=== PATIENT | male | born 1935 | race Caucasian/White ===

== ENCOUNTER 2016-07-18 15:00 | Observation (INO) | payer MEDICARE ==
[~2016-07-18] VITALS: Ht 170.2 cm; Wt 175.0 kg
[2016-07-18 15:15] VITALS: BP 105/60; PULSE 59; RESP 16; TEMP 97.5; O2SAT 97
[2016-07-18] MEDS ORDERED: ATOR20TA15 PO (15:25)
[2016-07-18] MEDS ORDERED: TAMS5CAP PO (15:25)
[2016-07-18] MEDS ORDERED: PLAV75TA29 PO (15:25)
[2016-07-18] MEDS ORDERED: ASPI81CH CHEW (15:25)
[2016-07-18] MEDS ORDERED: GLIP5TAB8 PO (15:26)
[2016-07-18] MEDS ORDERED: LISI-519 PO (15:26)
[2016-07-18] MEDS ORDERED: METF500T PO (15:26)
[2016-07-18 15:28] VITALS: O2SAT 98
--- NOTE | 2016-07-18 15:42 | PD ---
HPI Chief Complaint: Syncope/Near-Syncope Time Seen by Provider: 15:39 Travel History International Travel<30 days: No Contact w/Intl Traveler<30days: No Traveled to known affect area: No History of Present Illness HPI 80-year-old male that presents to the ED for evaluation of syncopal episode. Patient apparently was sitting watching TV when she felt that he had to go to the bathroom to have a bowel movement. Per patient he got up and he felt somewhat lightheaded but he continued to walk and then he had a syncopal episode. He does not remember if he lost consciousness but does tell me that he did not hit his head. He denies any chest pain or symptoms other than sensation of lightheadedness before he passed out. He denies any pain of any kind at this time. He does have a history of coronary disease with having 2 stents 2 years ago as well as history of diabetes and high blood pressure and high cholesterol. He does take Plavix. At this time he denies any symptoms other than slight weakness but for the most part he feels well. He denies any chest pain or shortness of breath. No abdominal discomfort. No bowel movement or urinary issues. Allergies to penicillin. He does tell me that he did drink a beer before this happened. This is his normal routine. He has never had anything like this before. PFSH Past Medical History Cardiovascular Problems: Yes (cad) Coronary Artery Disease: Yes Diabetes: Yes Patient Takes Glucophage: No Genitourinary: Yes (pROSTITIS) Triglycerides - High: Yes Past Surgical History Abdominal Surgery: Yes (CHOLY) Social History Alcohol Use: No Tobacco Use: Yes Substance Use: No Allergies-Medications (Allergen,Severity, Reaction): Coded Allergies: Penicillin (Verified Allergy, Intermediate, Swelling, 07/18/16) Reported Meds & Prescriptions Reported Meds & Active Scripts Active Reported Metformin (Metformin HCl) 500 Mg Tab 500 Mg PO BIDPC With meals Lisinopril 5 Mg Tab 5 Mg PO DAILY Glipizide 5 Mg Tab 5 Mg PO DAILY Take 30 minutes before a meal Flomax (Tamsulosin HCl) 0.4 Mg Cap 0.4 Mg PO HS Aspirin 81 Mg Chew 81 Mg CHEW DAILY Plavix (Clopidogrel Bisulfate) 75 Mg Tab 75 Mg PO DAILY Atorvastatin (Atorvastatin Calcium) 20 Mg Tab 20 Mg PO HS Review of Systems Except as stated in HPI: all other systems reviewed are Neg Physical Exam Narrative GENERAL: SKIN: Warm and dry. HEAD: Atraumatic. Normocephalic. EYES: Pupils equal and round 4 mm reactive to light and accommodation. No scleral icterus. No injection or drainage. ENT: No nasal bleeding or discharge. Mucous membranes pink and moist. Tongue is midline. No uvula deviation. NECK: Trachea midline. No JVD. CARDIOVASCULAR: Regular rate and rhythm. No murmurs, S3, S4. RESPIRATORY: No accessory muscle use. Clear to auscultation. Breath sounds equal bilaterally. GASTROINTESTINAL: Abdomen soft, non-tender, nondistended. Hepatic and splenic margins not palpable. MUSCULOSKELETAL: Extremities without clubbing, cyanosis, or edema. No obvious deformities. Full range of motion of the upper and lower extremities bilaterally. 2+ pulses bilaterally. NEUROLOGICAL: Awake and alert. No obvious cranial nerve deficits. Motor grossly within normal limits. Five out of 5 muscle strength in the arms and legs. Normal speech. PSYCHIATRIC: Appropriate mood and affect; insight and judgment normal. Data Data Last Documented VS Vital Signs Date Time Temp Pulse Resp B/P Pulse Ox O2 Delivery O2 Flow Rate FiO2 07/18/16 16:30 60 97/51 61 98/57 73 93/54 07/18/16 16:15 Room Air 07/18/16 15:28 98 07/18/16 15:15 97.5 16 Orders Electrocardiogram (07/18/16 15:24) Complete Blood Count With Diff (07/18/16 15:24) Comprehensive Metabolic Panel (07/18/16 15:24) Ckmb (Isoenzyme) Profile (07/18/16 15:24) Troponin I (07/18/16 15:24) Prothrombin Time / Inr (Pt) (07/18/16 15:24) Act Partial Throm Time (Ptt) (07/18/16 15:24) Urinalysis - C+S If Indicated (07/18/16 15:24) Magnesium (Mg) (07/18/16 15:24) Thyroid Stimulating Hormone (07/18/16 15:24) Chest, Single Ap (07/18/16 15:24) Ct Brain W/O Iv Contrast(Rout) (07/18/16 15:24) Iv Access Insert/Monitor (07/18/16 15:24) Ecg Monitoring (07/18/16 15:24) Oximetry (07/18/16 15:24) Orthostatic Vital Signs (07/18/16 15:24) Alcohol (Ethanol) (07/18/16 15:24) Sodium Chlor 0.9% 1000 Ml Inj (Ns 1000 M (07/18/16 16:57) Labs Laboratory Tests Test 07/18/16 16:00 White Blood Count 10.0 TH/MM3 Red Blood Count 4.24 MIL/MM3 Hemoglobin 13.5 GM/DL Hematocrit 39.7 % Mean Corpuscular Volume 93.7 FL Mean Corpuscular Hemoglobin 31.9 PG Mean Corpuscular Hemoglobin 34.0 % Concent Red Cell Distribution Width 13.2 % Platelet Count 279 TH/MM3 Mean Platelet Volume 6.4 FL Neutrophils (%) (Auto) 86.9 % Lymphocytes (%) (Auto) 6.9 % Monocytes (%) (Auto) 5.2 % Eosinophils (%) (Auto) 0.7 % Basophils (%) (Auto) 0.3 % Neutrophils # (Auto) 8.7 TH/MM3 Lymphocytes # (Auto) 0.7 TH/MM3 Monocytes # (Auto) 0.5 TH/MM3 Eosinophils # (Auto) 0.1 TH/MM3 Basophils # (Auto) 0.0 TH/MM3 CBC Comment DIFF FINAL Differential Comment Prothrombin Time 11.4 SEC Prothromb Time International 1.0 RATIO Ratio Activated Partial 24.0 SEC Thromboplast Time Sodium Level 139 MEQ/L Potassium Level 5.3 MEQ/L Chloride Level 106 MEQ/L Carbon Dioxide Level 26.6 MEQ/L Anion Gap 6 MEQ/L Blood Urea Nitrogen 17 MG/DL Creatinine 1.20 MG/DL Estimat Glomerular Filtration 58 ML/MIN Rate Random Glucose 246 MG/DL Calcium Level 8.8 MG/DL Magnesium Level 2.1 MG/DL Total Bilirubin 1.1 MG/DL Aspartate Amino Transf 15 U/L (AST/SGOT) Alanine Aminotransferase 22 U/L (ALT/SGPT) Alkaline Phosphatase 96 U/L Total Creatine Kinase 42 U/L Troponin I LESS THAN 0.02 NG/ML Total Protein 6.8 GM/DL Albumin 3.9 GM/DL Thyroid Stimulating Hormone 0.926 uIU/ML 3rd Gen Ethyl Alcohol Level 6 MG/DL [facility] Medical Decision Making Medical Screen Exam Complete: Yes Emergency Medical Condition: Yes Medical Record Reviewed: Yes Interpretation(s) EKG shows sinus bradycardia but no sign of acute ischemia or arrhythmia. Read by me and attending. CBC & BMP Diagram 07/18/16 16:00 LFTS WNL troponin and CKMB negative Last Impressions Head CT 07/18/16 1524 Signed Impressions: Service Date/Time: Monday, July 18, 2016 15:44 - CONCLUSION: Negative for acute process.. Mor Troy MD FACR Chest X-Ray 07/18/16 1524 Signed Impressions: Service Date/Time: Monday, July 18, 2016 15:41 - CONCLUSION: No acute cardiopulmonary disease. Julien Arizmendi MD TSH within normal limits. Coags within normal limits Differential Diagnosis Syncope versus presyncope versus electrolyte abnormality versus arrhythmia versus CVA versus ACS Narrative Course 80-year-old male that presents to the ED for evaluation of syncope. Patient was properly examined and was found to have signs and symptoms consistent appears to be syncopal episode. I recommend labs and imaging. Labs and imaging ordered. Labs and imaging were essentially unremarkable this time. Because of patient's age and history of syncope I do recommend workup for syncopal episode. Labs and imaging show no sign of acute disease. Patient does have risk factors secondary to a patient his history of hypertension diabetes and high cholesterol. I do recommend further workup for syncopal episode. This was discussed with the family and patient were in agreement with this plan. Case was discussed with Dr. Carroll who agrees to admission. Procedures EKG Prior to Arrival: No Diagnosis Primary Impression: Syncope Qualified Code: R55 - Syncope, unspecified syncope type Admitting Information Admitting Physician Requests: Observation Jeremy Okeefe Jul 18, 2016 15:42
--- NOTE | 2016-07-18 15:50 | RADRPT ---
EXAM DATE/TIME: 07/18/2016 15:44 [facility] COMPARISON: No previous studies available for comparison. INDICATIONS : Syncope. RADIATION DOSE: 39.37 CTDIvol (mGy) MEDICAL HISTORY : Cardiovascular disease. Diabetes mellitus type 2. SURGICAL HISTORY : None. ENCOUNTER: Initial ACUITY: 1 day PAIN SCALE: 3/10 LOCATION: cranial TECHNIQUE: Multiple contiguous axial images were obtained of the head. Using automated exposure control and adj ustment of the mA and/or kV according to patient size, radiation dose was kept as low as reasonably a chievable to obtain optimal diagnostic quality images. FINDINGS: CEREBRUM: The ventricles are normal for age. No evidence of midline shift, mass lesion, hemorrhage or acute in farction. No extra-axial fluid collections are seen. POSTERIOR FOSSA: The cerebellum and brainstem are intact. The 4th ventricle is midline. The cerebellopontine angle i s unremarkable. EXTRACRANIAL: The visualized portion of the orbits is intact. SKULL: The calvaria is intact. No evidence of skull fracture. CONCLUSION: Negative for acute process.. Mor Troy MD FACR on July 18, 2016 at 15:48 Board Certified Radiologist. This report was verified electronically.
[2016-07-18 16:29] LABS: AUTOMATED NEUTROPHIL # 8.7 TH/MM3 (1.8-7.7); BASOPHIL % 0.3 % (0.0-2.0); EOSINOPHIL # 0.1 TH/MM3 (0-0.4); EOSINOPHIL % 0.7 % (0.0-4.0); HEMATOCRIT 39.7 % (39.0-51.0); HEMO FLAGS DIFF FINAL; LYMPH % 6.9 % (9.0-44.0); LYMPHOCYTE # 0.7 TH/MM3 (1.0-4.8); MEAN CELL VOLUME 93.7 FL (80.0-100.0); MEAN CORPUSCULAR HEMOGLOBIN 31.9 PG (27.0-34.0); MONO % 5.2 % (0.0-8.0); NEUT % 86.9 % (16.0-70.0); PLATELET COUNT 279 TH/MM3 (150-450); RED BLOOD COUNT 4.24 MIL/MM3 (4.50-5.90); RED CELL DISTRIBUTION WIDTH 13.2 % (11.6-17.2)
[2016-07-18 16:30] VITALS: BP_SYST 93; BP_SYST 97; BP_SYST 98; BP_DIAS 51; BP_DIAS 54; BP_DIAS 57
[2016-07-18 16:39] LABS: PROTHROMBIN TIME - PATIENT 11.4 SEC (9.8-11.6)
--- NOTE | 2016-07-18 16:40 | RADRPT ---
EXAM DATE/TIME: 07/18/2016 15:41 [facility] COMPARISON: No previous studies available for comparison. INDICATIONS : Syncope MEDICAL HISTORY : Cardiovascular disease. Diabetes mellitus type II. SURGICAL HISTORY : None. ENCOUNTER: Initial ACUITY: 1 day PAIN SCORE: 0/10 LOCATION: chest FINDINGS: The lungs are clear without infiltrate, nodule, or mass. There is no appreciable pleural effusion fo r technique. Heart and mediastinum are unremarkable. CONCLUSION: No acute cardiopulmonary disease. Julien Arizmendi MD on July 18, 2016 at 16:37 Board Certified Radiologist. This report was verified electronically.
[2016-07-18 16:44] LABS: ALT (GPT) 22 U/L (12-78); ANION GAP 6 MEQ/L (5-15); AST (GOT) 15 U/L (15-37); BICARBONATE 26.6 MEQ/L (21.0-32.0); BLOOD UREA NITROGEN 17 MG/DL (7-18); CHLORIDE 106 MEQ/L (98-107); GLOMERULAR FILTRATION RATE 58 ML/MIN (>89); MAGNESIUM 2.1 MG/DL (1.5-2.5); POTASSIUM 5.3 MEQ/L (3.5-5.1); SODIUM (NA) 139 MEQ/L (136-145)
[2016-07-18 16:54] LABS: ALKALINE PHOSPHATASE 96 U/L (45-117); TOTAL BILIRUBIN ADULT 1.1 MG/DL (0.2-1.0)
[2016-07-18 16:55] LABS: CREATINE KINASE 42 U/L (39-308)
[2016-07-18] MEDS ORDERED: SODIUM CHLOR 0.9% 1000 ML INJ 1,000 ML IV SCH (16:57)
[2016-07-18] MEDS ORDERED: SODIUM CHLORIDE 0.9% FLUSH 10 ML FLUSH IV FLUSH PRN (17:45)
[2016-07-18] MEDS ORDERED: GLUCAGON 1 MG/ML VIAL OTHER PRN (17:45)
[2016-07-18] MEDS ORDERED: DEXTROSE 50% IN WATER 50 ML VIAL(D50) IV PUSH PRN (17:45)
[2016-07-18] MEDS: SODIUM CHLOR 0.9% 1000 ML INJ 1,000 ML IV SCH (18:29)
--- NOTE | 2016-07-18 18:45 | HHI.HP ---
HPI Service [facility] Primary Care Physician Non-Staff Admission Diagnosis Syncope Diagnoses: Chief Complaint: pass out, lighthadedness Travel History International Travel<30 Days: No Contact w/Intl Traveler <30 Da: No Traveled to Known Affected Are: No History of Present Illness 80-year-old male with PMH of DM2, HTN, CAD with 3 stents, BPH that presents to the ED for evaluation of syncopal episode. Patient apparently was sitting watching TV when she felt that he had to go to the bathroom to have a bowel movement. Per patient he got up and he felt somewhat lightheaded but he continued to walk and then he had a syncopal episode. He does not remember if he lost consciousness but does tell me that he did not hit his head. He denies any chest pain or symptoms other than sensation of lightheadedness before he passed out. He denies any pain of any kind at this time. He does have a history of coronary disease with having 2 stents 2 years ago as well as history of diabetes and high blood pressure and high cholesterol. He does take Plavix and ASA. At this time he denies any symptoms other than slight weakness but for the most part he feels well. He denies any chest pain or shortness of breath. No palpitations, lightheadedness. No abdominal discomfort. No bowel movement or urinary issues. Allergies to penicillin. He does tell me that he did drink a beer before this happened. This is his normal routine. He has never had anything like this before. Says he is compliant with meds and follow up. Says he got over a cold recently say she was taking vit C and also drops. No fever or chills. No cough. Review of Systems Except as stated in HPI: all other systems reviewed are Neg Past Family Social History Past Medical History HTN, CAD, DM, BPH Past Surgical History Cholecystectomy Cardiac cath 2 years ago Right arm surgery Reported Medications Reported Meds & Active Scripts Active Reported Metformin (Metformin HCl) 500 Mg Tab 500 Mg PO BIDPC With meals Lisinopril 5 Mg Tab 5 Mg PO DAILY Glipizide 5 Mg Tab 5 Mg PO DAILY Take 30 minutes before a meal Flomax (Tamsulosin HCl) 0.4 Mg Cap 0.4 Mg PO HS Aspirin 81 Mg Chew 81 Mg CHEW DAILY Plavix (Clopidogrel Bisulfate) 75 Mg Tab 75 Mg PO DAILY Atorvastatin (Atorvastatin Calcium) 20 Mg Tab 20 Mg PO HS Allergies: Coded Allergies: Penicillin (Verified Allergy, Intermediate, Swelling, 07/18/16) Family History Brother at the age of 75 had Chronhs disease Mother at the age of 55 EtOH abuse and related problems Father at the age of 70 poss [place] not sure Social History Occasional EtOH use, beet one almost daily Denies tobacco use or illicit drug use. Physical Exam Vital Signs Vital Signs Date Time Temp Pulse Resp B/P Pulse Ox O2 Delivery O2 Flow Rate FiO2 07/18/16 16:30 60 97/51 61 98/57 73 93/54 07/18/16 16:15 61 Room Air 07/18/16 15:28 98 Room Air 07/18/16 15:15 97.5 59 16 105/60 97 Physical Exam GENERAL: This is a well-nourished, well-developed patient, in no apparent distress. SKIN: No rashes, ecchymoses or lesions. Cool and dry. HEAD: Atraumatic. Normocephalic. No temporal or scalp tenderness. EYES: Pupils equal round and reactive. Extraocular motions intact. No scleral icterus. No injection or drainage. ENT: Nose without bleeding, purulent drainage or septal hematoma. Throat without erythema, tonsillar hypertrophy or exudate. Uvula midline. Airway patent. NECK: Trachea midline. No JVD or lymphadenopathy. Supple, nontender, no meningeal signs. CARDIOVASCULAR: Regular rate and rhythm without murmurs, gallops, or rubs. RESPIRATORY: Clear to auscultation. Breath sounds equal bilaterally. No wheezes , rales, or rhonchi. GASTROINTESTINAL: Abdomen soft, non-tender, nondistended. No hepato-splenomegaly , or palpable masses. No guarding. MUSCULOSKELETAL: Extremities without clubbing, cyanosis, or edema. No joint tenderness, effusion, or edema noted. No calf tenderness. Negative Homans sign bilaterally. NEUROLOGICAL: Awake and alert. Cranial nerves II through XII intact. Motor and sensory grossly within normal limits. Five out of 5 muscle strength in all muscle groups. Normal speech. Laboratory Laboratory Tests Test 07/18/16 16:00 White Blood Count 10.0 Red Blood Count 4.24 Hemoglobin 13.5 Hematocrit 39.7 Mean Corpuscular Volume 93.7 Mean Corpuscular Hemoglobin 31.9 Mean Corpuscular Hemoglobin 34.0 Concent Red Cell Distribution Width 13.2 Platelet Count 279 Mean Platelet Volume 6.4 Neutrophils (%) (Auto) 86.9 Lymphocytes (%) (Auto) 6.9 Monocytes (%) (Auto) 5.2 Eosinophils (%) (Auto) 0.7 Basophils (%) (Auto) 0.3 Neutrophils # (Auto) 8.7 Lymphocytes # (Auto) 0.7 Monocytes # (Auto) 0.5 Eosinophils # (Auto) 0.1 Basophils # (Auto) 0.0 CBC Comment DIFF FINAL Differential Comment Prothrombin Time 11.4 Prothromb Time International 1.0 Ratio Activated Partial 24.0 Thromboplast Time Sodium Level 139 Potassium Level 5.3 Chloride Level 106 Carbon Dioxide Level 26.6 Anion Gap 6 Blood Urea Nitrogen 17 Creatinine 1.20 Estimat Glomerular Filtration 58 Rate Random Glucose 246 Calcium Level 8.8 Magnesium Level 2.1 Total Bilirubin 1.1 Aspartate Amino Transf 15 (AST/SGOT) Alanine Aminotransferase 22 (ALT/SGPT) Alkaline Phosphatase 96 Total Creatine Kinase 42 Troponin I LESS THAN 0.02 Total Protein 6.8 Albumin 3.9 Thyroid Stimulating Hormone 0.926 3rd Gen Ethyl Alcohol Level 6 Result Diagram: 07/18/16 1600 07/18/16 1600 Imaging Last Impressions Head CT 07/18/16 1524 Signed Impressions: Service Date/Time: Monday, July 18, 2016 15:44 - CONCLUSION: Negative for acute process.. Mor Troy MD FACR Chest X-Ray 07/18/16 1524 Signed Impressions: Service Date/Time: Monday, July 18, 2016 15:41 - CONCLUSION: No acute cardiopulmonary disease. K. Vineet Arizmendi MD Assessment and Plan Assessment and Plan 80-year-old male that presents to the ED for evaluation of syncope: Dizziness. Syncope and collapse Patient with h/o CAD with 3 stents ( 2 yers ago), following regularly with his cardiology Dr in winter EKG shows sinus bradycardia but no sign of acute ischemia or arrhythmia. Trop negs. Doesn't complain of any chest pain or pressure. CT head negative CXR negative. Patient reported he got over a cold he treated with vit C and OTC drops Labs normal. TSH normal Neurochecks EEG Check carotid US, 2D ECHO Holter monitor Consult neurology Monitor on telemetry Continue patients meds plavix, ASA, statin Hold antihypertensive drugs as BP noted into a lower side. DM2: Hold metformin. Accuchecks, start IsSlow. Monitor and adjust as need. Chronic medical problems. BPH, stabl restart home meds. DVT ppx SCD/TEDs also on asa and plavix Discussed Condition With patient,. nurse, ED physician Margarita Carroll MD Jul 18, 2016 18:45
[2016-07-18 18:58] LABS: BLOOD, URINE NEG (NEG); COMMENT (UR) CULT NOT INDICATED; CULTURE IF INDICATED CULT NOT INDICATED; GLUCOSE,URINE 300 mg/dL (NEG); HYALINE CAST, URINE 7 /lpf (RARE); KETONE, URINE NEG (NEG); MUCUS URINE FEW /lpf (OCC); NITRITE,URINE NEG (NEG); PH, URINE 5.5 (5.0-8.5); URINE COLOR YELLOW (YELLW/STRAW)
[2016-07-18 19:45] VITALS: BP 124/58; PULSE 61; RESP 16; O2SAT 97
[2016-07-18] MEDS: SODIUM CHLORIDE 0.9% FLUSH 10 ML FLUSH IV FLUSH SCH (20:49)
[2016-07-18] MEDS: INSULIN ASPART SUPPLEMENTAL SCALE SQ SCH (20:50)
[2016-07-18 20:52] VITALS: BP 106/47; PULSE 60; RESP 19; TEMP 98.3; O2SAT 94
[2016-07-18] MEDS ORDERED: ATORVASTATIN 20 MG TAB PO SCH (21:00)
[2016-07-18 23:37] VITALS: BP 101/45; PULSE 58; RESP 19; TEMP 98.2; O2SAT 96
[2016-07-19] VITALS: O2SAT 96
[2016-07-19 03:28] VITALS: PULSE 52
[2016-07-19 04:03] VITALS: BP 102/48; PULSE 52; RESP 19; TEMP 98; O2SAT 96
[2016-07-19] MEDS: SODIUM CHLOR 0.9% 1000 ML INJ 1,000 ML IV SCH ×2 (04:40→14:19)
[2016-07-19] MEDS: INSULIN ASPART SUPPLEMENTAL SCALE SQ SCH ×2 (05:53→13:15)
[2016-07-19 07:54] VITALS: BP 124/62; PULSE 53; RESP 18; TEMP 97.1; O2SAT 97
[2016-07-19] MEDS: SODIUM CHLORIDE 0.9% FLUSH 10 ML FLUSH IV FLUSH SCH (08:05)
[2016-07-19 08:15] LABS: BASOPHIL % 0.4 % (0.0-2.0); EOSINOPHIL # 0.2 TH/MM3 (0-0.4); EOSINOPHIL % 2.1 % (0.0-4.0); HEMATOCRIT 37.8 % (39.0-51.0); HEMO FLAGS DIFF FINAL; LYMPH % 11.5 % (9.0-44.0); LYMPHOCYTE # 1.2 TH/MM3 (1.0-4.8); MEAN CELL VOLUME 93.5 FL (80.0-100.0); MEAN CORPUSCULAR HEMOGLOBIN 31.3 PG (27.0-34.0); MEAN CORPUSCULAR HGB CONC 33.5 % (32.0-36.0); MONO % 6.9 % (0.0-8.0); NEUT % 79.1 % (16.0-70.0); PLATELET COUNT 225 TH/MM3 (150-450); RED BLOOD COUNT 4.04 MIL/MM3 (4.50-5.90); RED CELL DISTRIBUTION WIDTH 12.8 % (11.6-17.2); WHITE BLOOD COUNT 10.1 TH/MM3 (4.0-11.0)
[2016-07-19] MEDS ORDERED: ASPIRIN 81 MG CHEW TAB CHEW SCH (09:00)
[2016-07-19] MEDS ORDERED: CLOPIDOGREL 75 MG TAB PO SCH (09:00)
--- NOTE | 2016-07-19 10:12 | RADRPT ---
EXAM DATE/TIME: 07/19/2016 08:43 [facility] COMPARISON: No previous studies available for comparison. INDICATIONS : Syncope. MEDICAL HISTORY : Coronary Artery Disease. Diabetes. Hyperlipidemia. Tobacco use. SURGICAL HISTORY : Cholecystectomy. ENCOUNTER: Initial ACUITY: 2 days PAIN SCORE: 0/10 LOCATION: Bilateral neck PEAK SYSTOLIC VELOCITIES (cm/sec): ICA/CCA RATIO: Right: 1.1 Left: 0.9 ICA: Right: 103 Left: 113 CCA: Right: 94 Left: 119 ECA: Right: 103 Left: 105 VERTEBRAL: Right: 44 antegrade Left: 50 antegrade Elevated flow velocities and ICA/CCA ratios have been found to correlate with increased degrees of vessel stenosis, calculated as percentage of diameter relative to a normal segment of distal ICA/CCA FINDINGS: RIGHT CAROTID: No significant stenosis is visualized. The waveforms are within normal limits. LEFT CAROTID: There is mild plaque at the carotid bulb. No significant stenosis is visualized. The waveforms are w ithin normal limits. VERTEBRAL ARTERIES: Antegrade flow is seen in both vertebral arteries. MISCELLANEOUS: None. CONCLUSION: Mild plaque at the left carotid bulb. A significant stenosis is not seen. Wagner Zeng MD on July 19, 2016 at 10:09 Board Certified Radiologist. This report was verified electronically.
[2016-07-19 11:00] VITALS: PULSE 54
[2016-07-19 11:38] VITALS: BP 132/60; PULSE 52; RESP 20; TEMP 97.6; O2SAT 95
--- NOTE | 2016-07-19 13:04 | HHI.PR ---
Subjective Remarks At the margin of the bed, eating. Says he doesn't have much appetite. No n/v/d/ c. Says BS was elevated earlier. No headache, change in vision, motor deficit. No lightheadedness, diaphoresis, dizziness, seizures. Has no sob or chest pain. Objective Vitals Vital Signs Date Time Temp Pulse Resp B/P Pulse Ox O2 Delivery O2 Flow Rate FiO2 07/19/16 11:38 97.6 52 20 132/60 95 07/19/16 11:00 54 07/19/16 07:54 97.1 53 18 124/62 97 07/19/16 04:03 98.0 52 19 102/48 96 07/19/16 03:28 52 07/19/16 00:00 96 07/18/16 23:37 98.2 58 19 101/45 96 07/18/16 20:52 98.3 60 19 106/47 94 07/18/16 19:45 61 16 124/58 97 07/18/16 16:30 60 97/51 61 98/57 73 93/54 07/18/16 16:15 61 Room Air 07/18/16 15:28 98 Room Air 07/18/16 15:15 97.5 59 16 105/60 97 Result Diagram: 07/19/16 0738 07/18/16 1600 Imaging Last Impressions Carotid Artery Ultrasound 07/19/16 0000 Signed Impressions: Service Date/Time: Tuesday, July 19, 2016 08:43 - CONCLUSION: Mild plaque at the left carotid bulb. A significant stenosis is not seen. Wagner Zeng MD Head CT 07/18/16 1524 Signed Impressions: Service Date/Time: Monday, July 18, 2016 15:44 - CONCLUSION: Negative for acute process.. Mor Troy MD FACR Chest X-Ray 07/18/16 1524 Signed Impressions: Service Date/Time: Monday, July 18, 2016 15:41 - CONCLUSION: No acute cardiopulmonary disease. Julien Arizmendi MD Objective Remarks GENERAL: This is a well-nourished, well-developed patient, in no apparent distress. SKIN: No rashes, ecchymoses or lesions. Cool and dry. HEAD: Atraumatic. Normocephalic. No temporal or scalp tenderness. EYES: Pupils equal round and reactive. Extraocular motions intact. No scleral icterus. No injection or drainage. ENT: Nose without bleeding, purulent drainage or septal hematoma. Throat without erythema, tonsillar hypertrophy or exudate. Uvula midline. Airway patent. NECK: Trachea midline. No JVD or lymphadenopathy. Supple, nontender, no meningeal signs. CARDIOVASCULAR: Regular rate and rhythm without murmurs, gallops, or rubs. RESPIRATORY: Clear to auscultation. Breath sounds equal bilaterally. No wheezes , rales, or rhonchi. GASTROINTESTINAL: Abdomen soft, non-tender, nondistended. No hepato-splenomegaly , or palpable masses. No guarding. MUSCULOSKELETAL: Extremities without clubbing, cyanosis, or edema. No joint tenderness, effusion, or edema noted. No calf tenderness. Negative Homans sign bilaterally. NEUROLOGICAL: Awake and alert. Cranial nerves II through XII intact. Motor and sensory grossly within normal limits. Five out of 5 muscle strength in all muscle groups. Normal speech. A/P Assessment and Plan 80-year-old male that presents to the ED for evaluation of syncope: Dizziness. Syncope and collapse Patient with h/o CAD with 3 stents ( 2 yers ago), following regularly with his cardiology Dr in winter EKG shows sinus bradycardia but no sign of acute ischemia or arrhythmia. Trop negs. Doesn't complain of any chest pain or pressure. CT head negative CXR negative. Patient reported he got over a cold he treated with vit C and OTC drops Labs normal. TSH normal Neurochecks EEG Check carotid US reviewed and normal 2D ECHO pending Holter monitor Consult neurology Monitor on telemetry EEG Continue patients meds plavix, ASA, statin Hold antihypertensive drugs as BP noted into a lower side. DM2: Hold metformin. Accuchecks, start IsSlow. Monitor and adjust as need. Chronic medical problems. BPH, stabl restart home meds. DVT ppx SCD/TEDs also on asa and plavix Discussed Condition With patient, nurse Margarita Carroll MD Jul 19, 2016 13:04
--- NOTE | 2016-07-19 13:20 | EKG ---
Date Performed: 07/18/2016 Time Performed: 15:16:32 PTAGE: 80 years EKG: SINUS BRADYCARDIA WITH SINUS ARRHYTHMIA POSSIBLE RIGHT VENTRICULAR CONDUCTION DELAY BORDERL INE ECG INTERPRETATION BASED ON A DEFAULT AGE OF 40 YEARS NO PREVIOUS TRACING DOCTOR: Davon Jeter Interpretating Date/Time 07/19/2016 13:17:06
--- NOTE | 2016-07-19 14:56 | HHI.DS ---
Discharge Summary Admission Date Jul 18, 2016 at 17:41 Discharge Date: Jul 19, 2016 Admitting Diagnosis Syncope (1) Syncope ICD Code: R55 Diagnosis: Principal (2) CAD (coronary artery disease) ICD Code: I25.10 Diagnosis: Secondary (3) HTN (hypertension) ICD Code: I10 Diagnosis: Secondary Procedures none Brief History - From Admission 80-year-old male with PMH of DM2, HTN, CAD with 3 stents, BPH that presents to the ED for evaluation of syncopal episode. Patient apparently was sitting watching TV when she felt that he had to go to the bathroom to have a bowel movement. Per patient he got up and he felt somewhat lightheaded but he continued to walk and then he had a syncopal episode. He does not remember if he lost consciousness but does tell me that he did not hit his head. He denies any chest pain or symptoms other than sensation of lightheadedness before he passed out. He denies any pain of any kind at this time. He does have a history of coronary disease with having 2 stents 2 years ago as well as history of diabetes and high blood pressure and high cholesterol. He does take Plavix and ASA. At this time he denies any symptoms other than slight weakness but for the most part he feels well. He denies any chest pain or shortness of breath. No palpitations, lightheadedness. No abdominal discomfort. No bowel movement or urinary issues. Allergies to penicillin. He does tell me that he did drink a beer before this happened. This is his normal routine. He has never had anything like this before. Says he is compliant with meds and follow up. Says he got over a cold recently say she was taking vit C and also drops. No fever or chills. No cough. CBC/BMP: 07/19/16 0738 07/18/16 1600 Significant Findings Laboratory Tests Test 07/18/16 07/18/16 07/19/16 16:00 18:00 07:38 Red Blood Count 4.24 MIL/MM3 4.04 MIL/MM3 (4.50-5.90) (4.50-5.90) Mean Platelet Volume 6.4 FL 6.3 FL (7.0-11.0) (7.0-11.0) Neutrophils (%) (Auto) 86.9 % 79.1 % (16.0-70.0) (16.0-70.0) Lymphocytes (%) (Auto) 6.9 % (9.0-44.0) Neutrophils # (Auto) 8.7 TH/MM3 8.0 TH/MM3 (1.8-7.7) (1.8-7.7) Lymphocytes # (Auto) 0.7 TH/MM3 (1.0-4.8) Activated Partial 24.0 SEC Thromboplast Time (24.3-30.1) Potassium Level 5.3 MEQ/L (3.5-5.1) Estimat Glomerular Filtration 58 ML/MIN (>89) Rate Random Glucose 246 MG/DL (74-106) Total Bilirubin 1.1 MG/DL (0.2-1.0) Troponin I LESS THAN 0.02 NG/ML (0.02-0.05) Ethyl Alcohol Level 6 MG/DL (0-5) Urine Glucose (UA) 300 mg/dL (NEG) Urine Leukocyte Esterase TRACE (NEG) Urine Mucus FEW /lpf (OCC) Hemoglobin 12.7 GM/DL (13.0-17.0) Hematocrit 37.8 % (39.0-51.0) Imaging Last Impressions Carotid Artery Ultrasound 07/19/16 0000 Signed Impressions: Service Date/Time: Tuesday, July 19, 2016 08:43 - CONCLUSION: Mild plaque at the left carotid bulb. A significant stenosis is not seen. Wagner Zeng MD Head CT 07/18/16 152 Signed Impressions: Service Date/Time: Monday, July 18, 2016 15:44 - CONCLUSION: Negative for acute process.. Mor Troy MD FACR Chest X-Ray 07/18/16 152 Signed Impressions: Service Date/Time: Monday, July 18, 2016 15:41 - CONCLUSION: No acute cardiopulmonary disease. Julien Arizmendi MD PE at Discharge GENERAL: This is a well-nourished, well-developed patient, in no apparent distress. SKIN: No rashes, ecchymoses or lesions. Cool and dry. HEAD: Atraumatic. Normocephalic. No temporal or scalp tenderness. EYES: Pupils equal round and reactive. Extraocular motions intact. No scleral icterus. No injection or drainage. ENT: Nose without bleeding, purulent drainage or septal hematoma. Throat without erythema, tonsillar hypertrophy or exudate. Uvula midline. Airway patent. NECK: Trachea midline. No JVD or lymphadenopathy. Supple, nontender, no meningeal signs. CARDIOVASCULAR: Regular rate and rhythm without murmurs, gallops, or rubs. RESPIRATORY: Clear to auscultation. Breath sounds equal bilaterally. No wheezes , rales, or rhonchi. GASTROINTESTINAL: Abdomen soft, non-tender, nondistended. No hepato-splenomegaly , or palpable masses. No guarding. MUSCULOSKELETAL: Extremities without clubbing, cyanosis, or edema. No joint tenderness, effusion, or edema noted. No calf tenderness. Negative Homans sign bilaterally. NEUROLOGICAL: Awake and alert. Cranial nerves II through XII intact. Motor and sensory grossly within normal limits. Five out of 5 muscle strength in all muscle groups. Normal speech. Hospital Course 80-year-old male that presents to the ED for evaluation of syncope: Dizziness. Syncope and collapse Patient with h/o CAD with 3 stents ( 2 yers ago), following regularly with his cardiology Dr in winter EKG shows sinus bradycardia but no sign of acute ischemia or arrhythmia. Trop negs. Doesn't complain of any chest pain or pressure. CT head negative CXR negative. Patient reported he got over a cold he treated with vit C and OTC drops Labs normal. TSH normal Neurochecks Check carotid US reviewed and normal 2D ECHO normal EF Holter monitor Consult neurology Monitor on telemetry EEG Continue patients meds plavix, ASA, statin Hold antihypertensive drugs as BP noted into a lower side. DM2: Hold metformin. Accuchecks, start IsSlow. Monitor and adjust as need. Chronic medical problems. BPH, stabl restart home meds. DVT ppx SCD/TEDs also on asa and plavix Discussed Condition With patient, nurse Patient improved, seen by neuro ,cleared the patient for DC . To follow up as OP with PCP and consultants. Pt Condition on Discharge: Stable Discharge Disposition: Discharge Home Discharge Time: > 30 minutes Discharge Instructions DIET: Follow Instructions for: Heart Healthy Diet, Diabetic Diet Activities you can perform: Regular-No Restrictions Follow up Referrals: PCP Follow-up - 3-5 Days Continued Medications: Aspirin (Aspirin) 81 Mg Chew 81 MG CHEW DAILY Ref 0 TAB Atorvastatin (Atorvastatin) 20 Mg Tab 20 MG PO HS Cholesterol Management #30 Ref 0 TAB Clopidogrel (Plavix) 75 Mg Tab 75 MG PO DAILY Blood Clot Prevention #30 Ref 0 TAB Glipizide (Glipizide) 5 Mg Tab 5 MG PO DAILY Take 30 minutes before a meal Blood Sugar Management #30 Ref 0 TAB Lisinopril (Lisinopril) 5 Mg Tab 5 MG PO DAILY Blood Pressure Management #30 Ref 0 TAB Metformin (Metformin) 500 Mg Tab 500 MG PO BIDPC With meals Blood Sugar Management #60 Ref 0 TAB Tamsulosin (Flomax) 0.4 Mg Cap 0.4 MG PO HS Manage Prostate Problems #30 Ref 0 CAP Margarita Carroll MD Jul 19, 2016 14:56
--- NOTE | 2016-07-19 16:08 | EC ---
Study Study Date:07/19/2016 STUDY CONCLUSIONS SUMMARY - Left ventricle: The cavity size was normal. Wall thickness was normal. Systolic function was normal. The estimated ejection fraction was in the range of 50% to 55%. Wall motion was normal; there were no regional wall motion abnormalities. - Mitral valve: Mild regurgitation. If LV function is below 40, please consider prescribing an ACEI or ARB or document rationale for non-use. PROCEDURE DATA STUDY STATUS: Elective. Procedure: Transthoracic echocardiography. Image quality was good. Scanning was performed from the parasternal, apical, and subcostal acoustic windows. Study completion: The patient tolerated the procedure well. Transthoracic echocardiography. M-mode, complete 2D, complete spectral Doppler, and color Doppler. Patient status: Inpatient. CARDIAC ANATOMY LEFT VENTRICLE: The cavity size was normal. Wall thickness was normal. Systolic function was normal. The estimated ejection fraction was in the range of 50% to 55%. Wall motion was normal; there were no regional wall motion abnormalities. AORTIC VALVE: Trileaflet; normal thickness leaflets. Doppler: Transvalvular velocity was within the normal range. There was no stenosis. No regurgitation. AORTA: Aortic root: The aortic root was normal in size. MITRAL VALVE: Structurally normal valve. Doppler: Transvalvular velocity was within the normal range. There was no evidence for stenosis. Mild regurgitation. LEFT ATRIUM: The atrium was normal in size. RIGHT VENTRICLE: The cavity size was normal. Wall thickness was normal. PULMONIC VALVE: Doppler: Transvalvular velocity was within the normal range. There was no evidence for stenosis. No regurgitation. TRICUSPID VALVE: Structurally normal valve. Doppler: Transvalvular velocity was within the normal range. No regurgitation. PULMONARY ARTERY: The main pulmonary artery was normal-sized. Systolic pressure was within the normal range. RIGHT ATRIUM: The atrium was normal in size. PERICARDIUM: There was no pericardial effusion. SYSTEMIC VEINS: Inferior vena cava: The vessel was normal in size. BASIC MEASUREMENTS ADULT Normal Left ventricle LV internal dimension, ED, chordal level, *41.5 mm 43-52 PLAX LV internal dimension, ES, chordal level, 31.1 mm 23-38 PLAX Fractional shortening, chordal level, PLAX *25 % >29 LV posterior wall thickness, ED 5.69 mm IVS/LVPW ratio, ED *2.06 <1.3 Ventricular septum Septal thickness, ED 11.7 mm Aortic valve Leaflet separation 21 mm 15-26 Left atrium Anterior-posterior dimension 38 mm Right ventricle RV internal dimension, ED, PLAX 20.8 mm 19-38 BASIC MEASUREMENTS ADULT Normal Aortic valve Leaflet separation 21 mm 15-26 Aorta Root diameter, ED 36 mm 20-37 DOPPLER MEASUREMENTS ADULT Normal Mitral valve Peak E-wave velocity 57.3 cm/s Peak A-wave velocity 72.1 cm/s Peak E/A ratio 0.8 Tricuspid valve Regurgitant peak velocity 116 cm/s Peak RV-RA gradient, S 5 mm Hg Maximal regurgitant velocity 116 cm/s LEGEND: Mean values are shown as u=mean value. Asterisk (*) mitchell values outside specified normal range. Prepared and signed by Stanley Narvaez [id number]
--- NOTE | 2016-07-19 17:26 | MB ---
cc: MAYA COOPER MD DATE OF CONSULTATION 07/19/16 He is seen in neurological consultation. He is an 80-year-old with a history of syncopal episode yesterday. He had finished dinner and had one beer. He felt lightheaded and felt he needed to go to the bathroom to relieve his bowels. On his way to the bathroom, he lost his balance and started blacking out. He probably blacked out and had some bowel movement. There was no apparent seizure activity. The patient is not even sure he lost consciousness. He denies any prior history of blacking out or seizures. He has a history of diabetes, coronary artery disease, hypertension. History of some heart stenting. MEDICATIONS 1. Metformin, 2. Lisinopril, 3. Glipizide, 4. Flomax, 5. Plavix, 6. Aspirin 7. Atorvastatin. No history of seizures. NEUROLOGIC EXAM Completely normal at bedside. Reflexes diminished but present at the elbows, trace at the knees and absent at the ankles. Plantar responses are flexor. Ocular movements and visual arroyo full. No facial weakness. IMAGING STUDIES CT brain without contrast negative for any acute process. LABORATORY DATA CBC unremarkable and chemistry with glucose 246, sodium 139, potassium 5.3, BUN and creatinine normal. ASSESSMENT Probable vasovagal syncopal episode. Other studies also included an unremarkable carotid ultrasound. I will read EEG. Neurological bojorquez, he can be discharged at home if ready medically. I will be happy to follow him. Thank you for asking us to assist in his care. Maya Cooper MD [facility]/[place] /2:48 PM /5:14 PM
--- NOTE | 2016-07-19 18:56 | MG ---
cc: MAYA BOYCE M.D. Lab No: Date: 07/19/2016 Age: 80 Sex: M Race: REQUESTING: Dr. Carroll. HISTORY: An EEG was obtained on this 80-year-old patient with history of syncope. DESCRIPTION OF RECORD: The patient is awake and asleep. The EEG shows awake and asleep features. Shortly after the initiation of the study there is a single sharp wave / discharge on the left frontoparietal head region of undetermined significance. Otherwise the study is showing fairly symmetrical awake and asleep features including some alpha rhythms, low amplitude beta activity and some theta activity. Photic stimulation disclosed some mild driving response. Hyperventilation was unremarkable. There is awake and drowsiness intermittently. INTERPRETATION: Probably normal awake and drowsy EEG. Single sharp discharge in the beginning of the study is of uncertain significance but nothing else to suggest an epileptiform dysfunction. Maya Boyce MD [facility]/[place] /5:59 PM /6:52 PM
--- NOTE | 2016-07-21 16:25 | HM ---
Date Performed: 07/18/2016 Time Performed: 21:24:00 HOOKUP DATE: 07/18/16 09:24:00 PM Fri ANALYSIS START TIME: 07/18/2016 9:29:00 PM ANALYSIS END TIME: 07/19/2016 5:20:54 PM PATIENT AGE: 80 PATIENT HEIGHT PATIENT WEIGHT DRUG LIST PATIENT DIAGNOSIS TEST NARRATIVE: The patient's average heart rate was 55 BPM. No episodes of tachycardia wer e noted. Heart rates less than 50 BPM were noted 35% of the time. 0 pauses exceeding 2.0 second s were noted. The longest pause of 2.6 seconds occurred at 04:22:28 PM Sat. 19 ventricular ectopi cs, which represented < 1% of the total beat count, were noted. The highest ventricular ectopic freq uency occurred from 11:00 AM to 12:00 PM Sat. During this time 4 VE(s) occurred. Ventricular ectopi cs were observed as 19 isolated beat(s) only. No couplets or runs were noted. 34 supraventricula r ectopics, which represented < 1% of the total beat count, were noted. The highest supraventricular ectopic frequency occurred from 04:00 PM to 05:00 PM Sat. During this time 5 SVE(s) occurred. N o episodes of ST depression (defined as -1.0 mm or more) were noted in channel 1. No episodes of ST depression (defined as -1.0 mm or more) were noted in channel 2. No episodes of ST depression (defin ed as -1.0 mm or more) were noted in channel 3. PT DIARY WAS NOT RETURNED WITH HOLTER MONITOR. TEST INTERPRETATION: Monitored for 19 hours. At 52 minutes, the patient was in sinus bradycardia . Average heart rate is 55 bpm. Sinus bradycardia at 40 bpm at 5:06 pm. Maximum heart rate of 94 bpm. 19 PVCS. 24 PACS. Signed by : Mike Car
== END 2016-07-19 18:02 | disposition home or self-care (01) ==
LOC: NEPE 15:00 → NEDA 17:41 → NEPGCP 20:35
PROVIDERS: ADMIT Hospitalist; ATTEND Hospitalist
DX: R55 Syncope and collapse (principal); I25.10 Atherosclerotic heart disease of native coronary artery without angina pectoris; I10 Essential (primary) hypertension; E11.9 Type 2 diabetes mellitus without complications; N40.0 Benign prostatic hyperplasia without lower urinary tract symptoms; E78.00 Pure hypercholesterolemia, unspecified; Z72.0 Tobacco use; Z95.5 Presence of coronary angioplasty implant and graft; Z88.0 Allergy status to penicillin; Z79.84 Long term (current) use of oral hypoglycemic drugs
CPT/HCPCS: 70450; 71010; 80053; 80307; 81001; 82550; 82948; 83735; 84443; 84484; 85025; 85610; 85730; 93005; 93225; 93226; 93306; 93880; 95819; 96360; 99285; G0378; J1815; J7030